=== PATIENT | female | born 1990 | race African-American/Black ===

== ENCOUNTER 2016-12-05 13:32 | Emergency (ER) | payer OTHER ==
[~2016-12-05] VITALS: Ht 152.4 cm; Wt 63.5 kg
[~2016-12-05 13:32] MED LIST: ASPIR-TRIN325 MG; FLAGYL500 MG PO; FLEXERIL PO; IRON325; PREDNISONE50 MG PO; PRENATAL FORMU1 EAC3 PO; TRIAMCINOLONE A15 G1 TP; TRINATE TABLET1 TAB PO; UNISOM25 MG PO; ZOFRAN ODT4 MG PO
[2016-12-05 14:20] LABS: URINE BILIRUBIN NEGATIVE (Negative); URINE BLOOD NEGATIVE (Negative); URINE COLOR YELLOW; URINE GLUCOSE-RANDOM* NEGATIVE (Negative); URINE KETONES NEGATIVE (Negative); URINE NITRITE NEGATIVE (Negative); URINE PROTEIN (DIPSTICK) NEGATIVE (Negative); URINE SPECIFIC GRAVITY 1.025 (1.003-1.035); URINE UROBILINOGEN 0.2 E.U./dl (0.2-1.0)
[2016-12-05 16:45] VITALS: BP 120/74
[2016-12-06 14:10] LABS: CHLAMYDIA TRACHOMATIS-PCR Negative (Negative); NEISSERIA GONORRHEA-PCR Negative (Negative)
== END 2016-12-05 16:46 | disposition home or self-care (01) ==
LOC: ER 13:32
PROVIDERS: Nurse Practitioner Family
DX: O26.891 Other specified pregnancy related conditions, first trimester (principal); R51 Headache; R10.2 Pelvic and perineal pain; Z3A.14 14 weeks gestation of pregnancy

== ENCOUNTER 2018-01-02 11:30 | Emergency (ER) | payer OTHER ==
[~2018-01-02] VITALS: Ht 152.4 cm; Wt 63.5 kg
[2018-01-02] MEDS ORDERED: NAPROSYN500 MG PO (12:01)
[2018-01-02] MEDS ORDERED: PHENERGAN 25 MG25 M1 PO (12:01)
[2018-01-02] MEDS ORDERED: METRONIDAZOLE500 M4 PO (12:06)
== END 2018-01-02 12:09 | disposition home or self-care (01) ==
LOC: ER 11:30
DX: J11.1 Influenza due to unidentified influenza virus with other respiratory manifestations (principal); B34.9 Viral infection, unspecified; F17.210 Nicotine dependence, cigarettes, uncomplicated